=== PATIENT | male | born 1995 | race African-American/Black ===

== ENCOUNTER 2016-09-02 02:07 | Emergency (ER) | payer OTHER ==
[~2016-09-02] VITALS: Ht 180.3 cm; Wt 95.5 kg
[2016-09-02 02:11] VITALS: Ht 180.3 cm; Wt 95.5 kg
[2016-09-02] MEDS ORDERED: DIPHENHYDRAMINE 50 MG INJ IV STA (02:27)
[2016-09-02] MEDS ORDERED: FAMOTIDINE 20 MG INJ INJ STA (02:27)
[2016-09-02] MEDS ORDERED: ALBUTEROL 0.083% (NEB) 2.5 MG/3 ML AMP INH STA (02:27)
[2016-09-02] MEDS ORDERED: EPINEPHrine 1 MG INJ ONE (02:27)
[2016-09-02] MEDS ORDERED: EPINEPHrine 1 MG INJ IM STA (02:27)
[2016-09-02] MEDS ORDERED: IPRATROPIUM (NEB) 0.5 MG/2.5 ML AMP INH STA (02:27)
[2016-09-02] MEDS ORDERED: DIPHENHYDRAMINE 50 MG INJ ONE (02:29)
[2016-09-02] MEDS ORDERED: DEXAMETHASONE 10 MG/ML 1 ML INJ IV ONE (02:30)
[2016-09-02] MEDS ORDERED: PRED50TA PO (02:57)
[2016-09-02] MEDS ORDERED: ALBU2.5V3 NEB (02:57)
[2016-09-02] MEDS ORDERED: [UNRECOGNIZED DRUG - CODE] PO (02:57)
[2016-09-02] MEDS ORDERED: MOME13HF2 INHALATION (02:57)
[2016-09-02] MEDS ORDERED: ALBU8.5H3 INH (02:57)
--- NOTE | 2016-09-02 03:21 | RADRPT ---
PROCEDURE: XR Chest. CLINICAL INDICATION: Anaphylaxis TECHNIQUE: Portable single view of the chest COMPARISON: None. FINDINGS: The cardiomediastinal silhouette appears within normal limits. Pulmonary vascularity is top normal. No focal infiltrate, pleural effusion, or overt congestive heart failure is seen. No bony abnorma lity is seen. IMPRESSION: No definite acute pulmonary disease. RPTAT: [facility] Angelina Bangura Physician Date Time Electronically viewed and signed by Angelina Bangura, Physician on 09/02/2016 03:21 LE/
[2016-09-02 03:34] LABS: ALBUMIN/GLOBULIN RATIO 1.47
[2016-09-02 03:42] LABS: CREATININE 0.95 mg/dl (0.61-1.24)
[2016-09-02 03:43] LABS: BILIRUBIN,INDIRECT 0.2 mg/dl (0-1.1); BILIRUBIN,TOTAL 0.2 mg/dl (0.2-1.3); CALCIUM 9.7 mg/dl (8.4-10.2); TOTAL PROTEIN 8.4 g/dl (6.1-8.1)
[2016-09-02 03:45] LABS: ADD SCAN DIFF NO
[2016-09-02 04:04] LABS: BASOPHIL # 0.1 10^3/ul (0.0-0.1); BASOPHILS % 0.5 % (0.0-2.0); EOSINOPHILS # 1.3 10^3/ul (0.0-0.5); EOSINOPHILS % 7.5 % (0.0-7.0); HEMATOCRIT 45.9 % (42.0-52.0); HEMOGLOBIN 15.3 g/dl (14.0-18.0); LYMPHOCYTES # 4.4 10^3/ul (0.8-2.9); LYMPHOCYTES % 25.7 % (15.0-51.0); MEAN CORPUSCULAR HEMOGLOBIN 28.7 pg (29.0-33.0); MEAN CORPUSCULAR HGB CONC 33.3 g/dl (32.0-37.0); MEAN CORPUSCULAR VOLUME 86.1 fl (82.0-101.0); MEAN PLATELET VOLUME 9.8 fl (7.4-10.4); MONOCYTE # 0.7 10^3/ul (0.3-0.9); MONOCYTES % 4.3 % (0.0-11.0); NEUTROPHIL # 10.6 10^3/ul (1.6-7.5); NEUTROPHILS % 61.6 % (39.0-77.0); PLATELET COUNT 277 10^3/UL (140-415); RED BLOOD COUNT 5.33 10^6/ul (4.70-6.10); RED CELL DISTRIBUTION WIDTH 12.3 % (11.5-14.5); WHITE BLOOD COUNT 17.2 10^3/ul (4.8-10.8)
[2016-09-02 04:25] VITALS: BP 127/67; PULSE 89; RESP 16
[2016-09-02] MEDS ORDERED: PRED20TA PO (04:51)
[2016-09-02] MEDS ORDERED: BEN50 PO (04:51)
[2016-09-02] MEDS ORDERED: EPIN0.3P4 INJ (04:51)
--- NOTE | 2016-09-02 04:52 | ERD ---
ER Documentation Chief Complaint Date/Time DATE: 09/02/16 TIME: 04:51 Chief Complaint allergic reaction to ibuprofen sob HPI 20-year-old male allergic reaction to ibuprofen. He comes in with complaints of shortness of breath. Complains of generalized body itching as well. Mild tongue swelling. No difficulty tolerating secretions. No other current issues. ROS All systems reviewed and are negative except as per history of present illness. Medications Home Meds Active Scripts Prednisone* (Prednisone*) 20 Mg Tab, 60 MG PO DAILY for 5 Days, TAB Prov:PAGE GHOTRA. 09/02/16 Epinephrine (Epipen 2-French) 0.3 Mg/0.3 Ml Pen.injctr, 1 EA INJ ONCE Y for ALLERGIC REACTION, #1 EA Prov:PAGE GHOTRA. 09/02/16 Diphenhydramine Hcl* (Benadryl*) 50 Mg Cap, 50 MG PO Q6 Y for ALLERGIC REACTION , #30 CAP Prov:PAGE GHOTRAKatherine 09/02/16 Reported Medications Phenylephrine HCl (Sinus PE Decongestant) 10 Mg Tablet, 10 MG PO, TAB 09/02/16 Mometasone-Formoterol (Dulera) 100-5 Mcg - 13 Gm Hfa.aer.ad, 2 PUFFS INHALATION BID, #1 INHALER 09/02/16 Albuterol Sulfate* (Proair HFA*) 8.5 Gm Hfa.aer.ad, 2 PUFF INH Q4, #1 INHALER 09/02/16 Albuterol Sulfate* (Albuterol Sulfate* Neb) 0.083%-3 Ml Neb, 1.25 MG NEB Q3H Y for WHEEZING AND SOB, #30 VIAL 09/02/16 Prednisone* (Prednisone*) 50 Mg Tablet, 25 MG PO DAILY, TAB 09/02/16 Allergies Allergies: Coded Allergies: ibuprofen (Verified Allergy, Severe, anaphylactic, 09/02/16) Penicillins (Verified Allergy, Intermediate, 09/02/16) PMhx/Soc Hx Respiratory Disorders: Yes (asthma, and pneumonia) Hx Alcohol Use: No Hx Substance Use: No Hx Tobacco Use: No Smoking Status: Unknown if ever smoked Physical Exam Vitals Vital Signs Date Time Temp Pulse Resp B/P Pulse Ox O2 Delivery O2 Flow Rate FiO2 09/02/16 04:25 89 16 127/67 97 Room Air 6/20/17 04:13 100 1.0 09/02/16 04:06 93 20 100 Non Rebreather Mask 100 09/02/16 02:53 100 15.0 100 09/02/16 02:11 98.3 122 30 169/95 85 Physical Exam Const: [] Head: Atraumatic Eyes: Normal Conjunctiva ENT: Normal External Ears, Nose and Mouth. Neck: Full range of motion..~ No meningismus. Resp: Clear to auscultation bilaterally Cardio: Regular rate and rhythm, no murmurs Abd: Soft, non tender, non distended. Normal bowel sounds Skin: No petechiae or rashes Back: No midline or flank tenderness Ext: No cyanosis, or edema Neur: Awake and alert Psych: Normal Mood and Affect Result Diagram: 09/02/16 0324 09/02/16 0304 Results 24 hrs Laboratory Tests Test 09/02/16 03:04 09/02/16 03:24 Sodium Level 143mmol/L Potassium Level 4.0mmol/L Chloride Level 106mmol/L Carbon Dioxide Level 23mmol/L Anion Gap 18 Blood Urea Nitrogen 10mg/dl Creatinine 0.95mg/dl Glucose Level 99mg/dl Calcium Level 9.7mg/dl Total Bilirubin 0.2mg/dl Direct Bilirubin 0.00mg/dl Indirect Bilirubin 0.2mg/dl Aspartate Amino Transf (AST/SGOT) 25IU/L Alanine Aminotransferase (ALT/SGPT) 34IU/L Alkaline Phosphatase 86IU/L Total Protein 8.4g/dl Albumin 5.0g/dl Globulin 3.40g/dl Albumin/Globulin Ratio 1.47 White Blood Count 17.210^3/ul Red Blood Count 5.3310^6/ul Hemoglobin 15.3g/dl Hematocrit 45.9% Mean Corpuscular Volume 86.1fl Mean Corpuscular Hemoglobin 28.7pg Mean Corpuscular Hemoglobin Concent 33.3g/dl Red Cell Distribution Width 12.3% Platelet Count 11621^3/UL Mean Platelet Volume 9.8fl Neutrophils % 61.6% Lymphocytes % 25.7% Monocytes % 4.3% Eosinophils % 7.5% Basophils % 0.5% Nucleated Red Blood Cells % 0.0/100WBC Neutrophils # 10.610^3/ul Lymphocytes # 4.410^3/ul Monocytes # 0.710^3/ul Eosinophils # 1.310^3/ul Basophils # 0.110^3/ul Nucleated Red Blood Cells # 0.010^3/ul Current Medications Medications (Trade) Dose Ordered Sig/Noy Route PRN Reason Start Time Stop Time Status Last Admin Dose Admin Diphenhydramine HCl (Benadryl) 50 mg ONCE STAT IV 09/02/16 02:27 09/02/16 02:29 DC 09/02/16 02:30 Epinephrine (EPINEPHrine) 0.3 mg ONCE STAT IM 09/02/16 02:27 09/02/16 02:29 DC 09/02/16 02:31 Famotidine (Pepcid Iv) 20 mg ONCE STAT INJ 09/02/16 02:27 09/02/16 02:30 DC 09/02/16 02:34 Albuterol (Proventil 0.083% (Neb)) 5 mg ONCE STAT INH 09/02/16 02:27 09/02/16 02:30 DC 09/02/16 04:05 Ipratropium [place] (Atrovent 0.02% (Neb)) 0.5 mg ONCE STAT INH 09/02/16 02:27 09/02/16 02:30 DC 09/02/16 04:05 Dexamethasone (Decadron) 10 mg ONCE ONCE IV 09/02/16 02:30 09/02/16 02:31 DC 09/02/16 02:46 Procedures/MDM Medical decision-makin-year-old male with anaphylactic reaction to ibuprofen. Treated here with steroids and subcu epinephrine. At this point observe for hours. Stable for outpatient management. Discharge home with EpiPen, Benadryl, prednisone. Follow-up with PCP. Critical Care: Time: 45 minutes Treatments/Evaluations: Close monitoring and treatment of unstable vital signs, cardiorespiratory, and neurologic status, while maintaining tight balance of fluid, respiratory, and cardiac interventions. Departure Diagnosis: Primary Impression: Allergic reaction Encounter type: initial encounter Qualified Code: T78.40XA - Allergic reaction, initial encounter Condition: Stable Patient Instructions: Allergic Reaction, Drug PAGE GHOTRA Sep 02, 2016 04:52
== END 2016-09-02 04:59 | disposition home or self-care (01) ==
LOC: E/R 02:07
DX: T88.6XXA Anaphylactic reaction due to adverse effect of correct drug or medicament properly administered, initial encounter (principal); T39.315A Adverse effect of propionic acid derivatives, initial encounter; L29.9 Pruritus, unspecified; J45.901 Unspecified asthma with (acute) exacerbation; Y82.9 Unspecified medical devices associated with adverse incidents
CPT/HCPCS: 71010; 80053; 85025; 94664; 96372; 96374; 96375; J0171; J1100; J1200; Z7502; Z7610